=== PATIENT | male | born 2000 | race Caucasian/White ===

== ENCOUNTER 2024-01-20 18:24 | Emergency (ER) | payer BC ==
[~2024-01-20] VITALS: Ht 170.2 cm; Wt 59.1 kg
[2024-01-20 18:34] VITALS: TEMP 97.7
[2024-01-20] MEDS ORDERED: ATARAX 25MG25 MG/TAB PO (21:22)
[2024-01-20 21:58] VITALS: BP 126/72; PULSE 80
== END 2024-01-20 21:40 | disposition home or self-care (01) ==
LOC: COL.ER 18:24
DX: R07.89 Other chest pain (principal); F41.9 Anxiety disorder, unspecified; R06.02 Shortness of breath